=== PATIENT | female | born 1985 | race African-American/Black ===

== ENCOUNTER 2021-09-20 21:59 | Emergency (ER) | payer BC, MEDICAID, SELFPAY ==
[2021-09-20 22:39] LABS: #Basophils 0.1 10x3/uL (0.0-0.2); #Eosinphils 0.2 10x3/uL (0.0-0.5); #Monocytes 0.6 10x3/uL (0.0-1.1); #Neutrophils 5.3 10x3/uL (1.5-8.4); %Basophils 0.6 % (0.0-2.0); %Eosinophils 2.4 % (0.0-6.0); %Lymphocytes 31.4 % (18.0-47.0); %Monocytes 6.4 % (0.0-10.0); %Neutrophils 58.9 % (40.0-75.0); Hemoglobin 9.3 g/dL (12.0-15.5); Mean Corpuscular HGB CONC 32.2 g/dL (32.0-36.0); Mean Corpuscular Hemoglobin 20.4 pg (27.0-33.0); Mean Corpuscular Volume 63.5 fl (81.6-98.3); Mean Platelet Volume 10.1 fl (7.4-10.4); Platelet Count 391 10x3/uL (150-450); RBC Distribution Width 18.4 % (11.5-14.5); Red Blood Cell (RBC) Count 4.55 10x6/uL (3.90-5.03)
[2021-09-20 22:46] LABS: ALT (SGPT) 10 U/L (8-55); AST (SGOT) 15 U/L (5-34); Albumin 3.9 g/dL (3.5-5.0); Alkaline Phosphatase 62 U/L (40-110); Anion Gap 13 mmol/L (10-20); BUN (Urea Nitrogen) 7 mg/dL (7.0-18.7); Bilirubin, Total 0.4 mg/dL (0.2-1.2); Calc. Creatinine Clearance 0 mL/min (70-130); Calcium 9.2 mg/dL (7.8-10.44); Carbon Dioxide 22 mmol/L (22-29); Chloride 108 mmol/L (98-107); Globulin 3.2 g/dL (2.4-3.5); Glucose 106 mg/dL (70-105); Potassium 3.5 mmol/L (3.5-5.1); Protein, Total 7.1 g/dL (6.0-8.3); Sodium 139 mmol/L (136-145)
[2021-09-20 22:58] LABS: Elliptocytes SLIGHT = 2-5 cells (100X) (0-1/hpf); Microcytosis MARKED = >30 cells (100X) (0-5/hpf)
[2021-09-20] MEDS ORDERED: diphenhydrAMINE 50 MG/ML VIAL ONE (22:58)
[2021-09-20] MEDS ORDERED: Metoclopramide HCl 10 MG/2 ML VIAL ONE (22:59)
[2021-09-20] MEDS ORDERED: Ketorolac Tromethamine 30 MG/ML VIAL ONE (22:59)
[2021-09-20] MEDS ORDERED: Acetaminophen 500 MG TAB ONE (22:59)
[2021-09-20 23:00] LABS: Platelet Morphology Comment Appears Adequate; Reflex for Review?? YES
[2021-09-20] MEDS ORDERED: Zonisamide 100 MG CAP PO SCH (23:30)
== END 2021-09-20 23:52 | disposition home or self-care (01) ==
LOC: CSHERS 21:59
DX: R56.9 Unspecified convulsions (principal); R51.9 Headache, unspecified
CPT/HCPCS: 36415; 71045; 80053; 85025; 85060; 96374; 96375; J1200; J1885; J2765